=== PATIENT | female | born 1970 | race Caucasian/White ===

== ENCOUNTER 2019-09-27 12:51 | Observation (INO) | payer OTHER ==
[2019-09-27] MEDS ORDERED: Aspirin 81 MG Tab.Chew PO ONE (12:59)
[2019-09-27] MEDS ORDERED: Sodium Chloride 0.9% 1,000 ML IV ONE (12:59)
--- NOTE | 2019-09-27 13:05 | EDM.PDOC ---
ED HPI GENERAL MEDICAL PROBLEM - General Stated Complaint: CHEST PAIN Time Seen by Provider: 09/27/19 12:54 Source of Information: Reports: Patient History Limitations: Reports: No Limitations - History of Present Illness INITIAL COMMENTS - FREE TEXT/NARRATIVE: HISTORY AND PHYSICAL: History of present illness: Patient is a 49-year-old female who presents to the emergency room with complaints of hypertension headache, left neck/chest and upper back pain. She states yesterday she noticed some change in her vision which she describes as a "crescent kinney" that was affecting the outer edges of her vision. When she has had this previously she attributed it to high blood pressure. She has been told she does occasionally run high but is never been placed on medications for this. Later that evening she developed pain in her left neck and upper back. She "dealt with it" until this morning when she arrived at work and started having some pressure in her left anterior chest into her neck. She went to the employee health nurse who evaluated her and stated her blood pressure was 180- 160s over 100's. She felt "drunk", had some associated nausea and feeling light headed. Patient denies any fever, chills, shortness of breath or cough. Denies any abdominal pain, vomiting, diarrhea, constipation or dysuria. Has not noted any blood in urine or stool. Patient has been eating and drinking appropriately. She has history of iron deficiency anemia and fibromyalgia. No personal history of heart disease. Never been a smoker. No known family history of heart disease. Review of systems: As per history of present illness and below otherwise all systems reviewed and negative. Past medical history: As per history of present illness and as reviewed below otherwise noncontributory. Surgical history: As per history of present illness and as reviewed below otherwise noncontributory. Social history: See social history for further information Family history: As per history of present illness and as reviewed below otherwise noncontributory. Physical exam: General: Well-developed and well-nourished 49-year-old female. Alert and oriented. Nontoxic-appearing and in no acute distress. HEENT: Atraumatic, normocephalic, pupils equal and reactive bilaterally, negative for conjunctival pallor or scleral icterus, mucous membranes moist, TMs normal bilaterally, throat clear, neck supple, nontender, trachea midline. No drooling or trismus noted. No meningeal signs. No hot potato voice noted. Lungs: Clear to auscultation, breath sounds equal bilaterally, chest nontender. Heart: S1S2, regular rate and rhythm without overt murmur Abdomen: Soft, nondistended, nontender. Negative for masses. Negative for costovertebral tenderness. Skin: Intact, warm, dry. No lesions or rashes noted. Extremities: Atraumatic, moves all extremities per self without difficulty or deficits, negative for cords or calf pain. Neurovascular unremarkable. Neuro: Awake, alert, oriented. Cranial nerves II through XII unremarkable. Cerebellum unremarkable. Motor and sensory unremarkable throughout. Exam nonfocal. Notes: 09/06/2019: Patient reports she had numerous labs done with her PCP. This included CBC, CMP, CRP, ESR, INR, Cholesterol Panel, Copper, Zinc, GIGI, Lyme, and Rheumatoid Factor. EKG shows Sinus Rhythm with rate of 85; reviewed by myself and Dr Cotto - who is involved in patient care. Lab work is unremarkable at this time. She states he chest/neck "pressure is practically gone" but she feels generally unwell "like my body is vibrating". We discussed admission, patient states she would feel unsafe going home at this time. Dr Langley was consulted on this case, will get at CT chest. Pending negative results; she will be admitted for observation to Med/Surg with telemetry. Patient is made aware of plan of care and agreeable. Diagnostics: CBC, CMP, Troponin, EKG, CXR, CT chest Therapeutics: IV fluid, ASA, Nitro, Toradol Impression: Uncontrolled hypertension Chest pain, r/o VA Plan: Observation admission to Med/Surg with telemetry Definitive disposition and diagnosis as appropriate pending reevaluation and review of above. Duration: Day(s): Location: Reports: Neck, Chest, Back Quality: Reports: Pressure Severity: Moderate Improves with: Reports: Rest Worsens with: Reports: Movement Associated Symptoms: Reports: Chest Pain, Fever/Chills (Subjective chills without fever), Headaches, Nausea/Vomiting (Nausea without vomiting). Denies: Confusion, Cough, cough w sputum, Diaphoresis, Loss of Appetite, Rash, Seizure, Shortness of Breath, Syncope, Weakness Chest Pain Score (Numeric/FACES): 3 Posterior Headache Pain Score (Numeric/FACES): 6 - Related Data Allergies Allergy/AdvReac Type Severity Reaction Status Date / Time codeine Allergy Vomiting Verified 09/27/19 13:07 hydrocodone Allergy Agitation Verified 09/27/19 13:07 Sulfa (Sulfonamide Allergy Swelling Verified 09/27/19 13:07 Antibiotics) sodium ferric gluconate Allergy Other Uncoded 09/27/19 13:07 Complex Home Meds: Home Meds Omeprazole 1 tab PO DAILY 03/31/15 [History] Ranitidine HCl [Acid Provider Relations Representative] 2 tab PO BEDTIME 03/31/15 [History] Amitriptyline HCl 1 tab PO BEDTIME 07/03/15 [History] carBAMazepine [Carbatrol] 100 mg PO ASDIRECTED 07/03/15 [History] Meloxicam 15 mg PO DAILY 09/27/19 [History] Past Medical History HEENT History: Reports: Other (See Below) Other HEENT History: wears glasses Cardiovascular History: Reports: High Cholesterol Respiratory History: Reports: None Gastrointestinal History: Reports: Hiatal Hernia Genitourinary History: Reports: None Other Genitourinary History: 4TH EPISODE IN 4 MONTHS WITH SIMILAR SYPTOMS [employer] History: Reports: Musculoskeletal History: Reports: Fibromyalgia, Other (See Below) Other Musculoskeletal History: TRIGEMINAL NEURALGIA Neurological History: Reports: None Other Neuro History: hx of Trigeminal Neuralgia post root canals Psychiatric History: Reports: Depression Endocrine/Metabolic History: Reports: Obesity/BMI 30+ Hematologic History: Reports: Iron Deficiency Immunologic History: Reports: None Other Immunologic History: hx of MRSA Oncologic (Cancer) History: Reports: None Dermatologic History: Reports: None Other Dermatologic History: Hx of MRSA from ear infection - Infectious Disease History Infectious Disease History: Reports: MRSA Other Infectious Disease History: 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 ED EXAM, GENERAL - Physical Exam Exam: See Below (See dictation) Course - Vital Signs Last Recorded V/S: Last Vital Signs Temp 97.7 F 09/27/19 12:55 Pulse 80 09/27/19 13:53 Resp 17 09/27/19 13:53 BP 142/84 H 09/27/19 13:53 Pulse Ox 98 09/27/19 13:53 - Orders/Labs/Meds Orders: Active Orders 24 hr Category Date Time Status Admission Status [Patient Status] [ADT] Stat ADT 09/27/19 14:36 Active Cardiac Monitoring [RC] . DIRECTED Care 09/27/19 13:25 Active Cardiac Monitoring [RC] . DIRECTED Care 09/27/19 14:36 Active EKG Documentation Completion [RC] STAT Care 09/27/19 12:59 Active Labs: Laboratory Tests 09/27/19 09/27/19 09/27/19 Range/Units 12:50 12:55 12:55 WBC 6.55 (4.0-11.0) K/uL RBC 4.95 (4.30-5.90) M/uL Hgb 13.4 (12.0-16.0) g/dL Hct 42.8 (36.0-46.0) % MCV 86.5 (80.0-98.0) fL MCH 27.1 (27.0-32.0) pg MCHC 31.3 (31.0-37.0) g/dL RDW Std Deviation 41.5 (28.0-62.0) fl RDW Coeff of Cindy 13 (11.0-15.0) % Plt Count 303 (150-400) K/uL MPV 8.40 (7.40-12.00) fL Neut % (Auto) 58.9 (48.0-80.0) % Lymph % (Auto) 32.2 (16.0-40.0) % [place] % (Auto) 7.2 (0.0-15.0) % Eos % (Auto) 1.1 (0.0-7.0) % Baso % (Auto) 0.6 (0.0-1.5) % Neut # (Auto) 3.9 (1.4-5.7) K/uL Lymph # (Auto) 2.1 (0.6-2.4) K/uL [place] # (Auto) 0.5 (0.0-0.8) K/uL Eos # (Auto) 0.1 (0.0-0.7) K/uL Baso # (Auto) 0.0 (0.0-0.1) K/uL Nucleated RBC % 0.0 /100WBC Nucleated RBCs # 0 K/uL Sodium 137 (136-145) mmol/L Potassium 3.8 (3.5-5.1) mmol/L Chloride 102 (98-107) mmol/L Carbon Dioxide 27.7 (21.0-32.0) mmol/L BUN 11 (7.0-18.0) mg/dL Creatinine 0.9 (0.6-1.0) mg/dL Est Cr Clr Drug Dosing 60.46 mL/min Estimated GFR (MDRD) > 60.0 ml/min Glucose 81 (74-106) mg/dL Calcium 8.9 (8.5-10.1) mg/dL Total Bilirubin 0.2 (0.2-1.0) mg/dL AST 20 (15-37) IU/L ALT 22 (14-63) IU/L Alkaline Phosphatase 81 (46-116) U/L Troponin I < 0.050 (0.000-0.056) ng/mL Total Protein 7.3 (6.4-8.2) g/dL Albumin 3.6 (3.4-5.0) g/dL Globulin 3.7 (2.6-4.0) g/dL Albumin/Globulin Ratio 1.0 (0.9-1.6) Urine Color YELLOW Urine Appearance SLT CLOUDY Urine pH 6.0 (5.0-8.0) Ur Specific [place] 1.015 (1.001-1.035) Urine Protein NEGATIVE (NEGATIVE) mg/dL Urine Glucose (UA) NEGATIVE (NEGATIVE) mg/dL Urine Ketones NEGATIVE (NEGATIVE) mg/dL Urine Occult Blood NEGATIVE (NEGATIVE) Urine Nitrite NEGATIVE (NEGATIVE) Urine Bilirubin NEGATIVE (NEGATIVE) Urine Urobilinogen 0.2 (<2.0) EU/dL Ur Leukocyte Esterase NEGATIVE (NEGATIVE) Meds: Medications Discontinued Medications Generic Name Dose Route Start Last Admin Trade Name Freq PRN Reason Stop Dose Admin Aspirin 324 mg 09/27/19 12:59 09/27/19 13:18 Aspirin PO 09/27/19 13:00 324 mg ONETIME ONE Administration Sodium Chloride 1,000 mls @ 999 mls/hr 09/27/19 12:59 09/27/19 13:19 Normal Saline IV 09/27/19 13:59 999 mls/hr STAT ONE Administration Ketorolac Tromethamine 30 mg 09/27/19 13:44 09/27/19 13:52 Toradol IVPUSH 09/27/19 13:45 30 mg ONETIME ONE Administration Nitroglycerin 0.4 mg 09/27/19 12:59 09/27/19 13:30 Nitrostat SL 0.4 mg Q5M PRN Administration Chest Pain Departure - Departure Time of Disposition: 14:44 Disposition: Refer to Observation Clinical Impression: Uncontrolled hypertension, Chest pain, rule out acute myocardial infarction - Discharge Information Referrals: Sarah Orozco NP [Primary Care Provider] - Sepsis Event Note - Focused Exam Vital Signs: Vital Signs Temp Pulse Resp BP BP Pulse Ox 09/27/19 13:53 80 17 142/84 H 98 09/27/19 13:35 89 16 134/74 96 09/27/19 13:32 91 16 132/80 97 09/27/19 13:30 130/83 09/27/19 13:27 93 15 136/83 97 09/27/19 13:25 141/90 H 09/27/19 13:24 92 14 131/101 H 97 09/27/19 13:20 138/116 H 09/27/19 12:55 97.7 F 92 18 173/92 H 99 Date Exam was Performed: 09/27/19 Time Exam was Performed: 14:42 - My Orders Last 24 Hours: My Active Orders 09/27/19 12:59 EKG Documentation Completion [RC] STAT 09/27/19 13:25 Cardiac Monitoring [RC] . DIRECTED 09/27/19 14:36 Admission Status [Patient Status] [ADT] Stat Cardiac Monitoring [RC] . DIRECTED - Assessment/Plan Last 24 Hours: My Active Orders 09/27/19 12:59 EKG Documentation Completion [RC] STAT 09/27/19 13:25 Cardiac Monitoring [RC] . DIRECTED 09/27/19 14:36 Admission Status [Patient Status] [ADT] Stat Cardiac Monitoring [RC] . DIRECTED
[2019-09-27] MEDS: Nitroglycerin 0.4 MG Tab.SL SL PRN ×3 (13:20→13:30)
--- NOTE | 2019-09-27 13:42 | CR ---
Chest: Portable view of the chest was obtained. Comparison: No previous chest imaging is available. Heart size and mediastinum are normal. Lungs are clear with no acute parenchymal change. Bony structures are grossly intact. Impression: 1. Nothing acute is seen on portable chest x-ray. Diagnostic code #1 This report was dictated in MDT
[2019-09-27 13:44] LABS: BLOOD UREA NITROGEN,BUN 11 mg/dL (7.0-18.0); CARBON DIOXIDE,CO2 27.7 mmol/L (21.0-32.0); CHLORIDE,CL 102 mmol/L (98-107); GLUCOSE RANDOM 81 mg/dL (74-106); POTASSIUM,K 3.8 mmol/L (3.5-5.1); SODIUM,NA 137 mmol/L (136-145)
[2019-09-27] MEDS ORDERED: Ketorolac 30 MG/ML SDV IVPUSH ONE (13:44)
--- NOTE | 2019-09-27 14:40 | CT ---
CT chest Technique: Multiple axial sections through the chest were obtained. Intravenous contrast was utilized. Study has been performed as a pulmonary angiogram protocol. Findings: Aorta shows no aneurysm. No dissection is seen. Pulmonary arteries are well opacified. No filling defects are seen to indicate pulmonary embolism. Small hiatal hernia is noted. No pericardial thickening is seen. Lungs are clear with no acute parenchymal change. Bone window settings were reviewed which shows no acute osseous finding. Impression: 1. No thoracic aneurysm or dissection. 2. No pulmonary embolism. 3. Nothing acute is appreciated on CT study of the chest. Diagnostic code #2 This report was dictated in MDT
[2019-09-27] MEDS ORDERED: Ondansetron 4 MG/2 ML SDV IVPUSH PRN (15:38)
[2019-09-27] MEDS ORDERED: Acetaminophen 325 MG Tab PO PRN (15:38)
--- NOTE | 2019-09-27 15:41 | PCM.HP.2 ---
H&P History of Present Illness - General Date of Service: 09/27/19 Admit Problem/Dx: Admission Diagnosis/Problem Admission Diagnosis/Problem Chest pain, rule out acute myocardial infarction Source of Information: Patient History Limitations: Reports: No Limitations - History of Present Illness Initial Comments - Free Text/Narative: This 49 year old female with pmh of HTN not currently treated, obesity, fibromyalgia, trigeminal neuralgia presented to the ED today with complaints of chest heaviness, some jaw pain, headache and elevated blood pressure. She states yesterday she noticed some change in her vision which she describes as a "crescent kinney" that was affecting the outer edges of her vision. She reports this has been there in the past and she attributed it to high blood pressure. SHe states recently at some clinic appointments her blood pressure has been quite elevated, but no medications have been started. Last night she developed pain in her left neck and upper back her massage her neck and she went to bed.This morning when she arrived at work and started having some pressure in her left anterior chest into her neck. She went to the employee health nurse who evaluated her and stated her blood pressure was 180-160s over 100's. She felt off and "just not right". Patient denies any fever, chills, shortness of breath or cough. Denies any abdominal pain, vomiting, diarrhea, constipation or dysuria. Has not noted any blood in urine or stool. Patient has been eating and drinking appropriately. No focal neurological deficits noted. She denies tobacco use, rare alcohol use and no recreational drug use. No significant CAD in her family. In the ED labwork WNL. EKG SR with no ST elevation or ischemic changes. CXR negative. She was given 3 nitro with improvement in symptoms, BP improved to 130 SBP. As nitro wore off, BP started creeping up to 160/90s. ED recommended admission for observation PCP, Dr Rodriguez. Recent labwork included elevated cholesterol for which she was started on Crestor for. Chest Pain Score (Numeric/FACES): 3 Posterior Headache Pain Score (Numeric/FACES): 6 - Related Data Allergies/Adverse Reactions: Allergies Allergy/AdvReac Type Severity Reaction Status Date / Time codeine Allergy Vomiting Verified 09/27/19 16:44 hydrocodone Allergy Agitation Verified 09/27/19 16:44 Sulfa (Sulfonamide Allergy Swelling Verified 09/27/19 16:44 Antibiotics) sodium ferric gluconate Allergy Other Uncoded 09/27/19 16:44 Complex Home Medications: Home Meds Ranitidine HCl [Acid Snath Handle Assembler] 150 mg PO BEDTIME 03/31/15 [History] Amitriptyline HCl 100 mg PO BEDTIME 07/03/15 [History] Meloxicam 15 mg PO DAILY 09/27/19 [History] Omeprazole 40 mg PO ACBREAKFAST 09/27/19 [History] Rosuvastatin [Crestor] 10 mg PO DAILY 09/27/19 [History] carBAMazepine [Carbamazepine ER] 100 mg PO TID PRN 09/27/19 [History] Past Medical History HEENT History: Reports: Other (See Below) Other HEENT History: wears glasses Cardiovascular History: Reports: High Cholesterol Respiratory History: Reports: None Gastrointestinal History: Reports: Hiatal Hernia Genitourinary History: Reports: None Other Genitourinary History: 4TH EPISODE IN 4 MONTHS WITH SIMILAR SYPTOMS [employer]LYST History: Reports: Musculoskeletal History: Reports: Fibromyalgia, Other (See Below) Other Musculoskeletal History: TRIGEMINAL NEURALGIA Neurological History: Reports: None Other Neuro History: hx of Trigeminal Neuralgia post root canals Psychiatric History: Reports: Depression Endocrine/Metabolic History: Reports: Obesity/BMI 30+ Hematologic History: Reports: Iron Deficiency Immunologic History: Reports: None Other Immunologic History: hx of MRSA Oncologic (Cancer) History: Reports: None Dermatologic History: Reports: None Other Dermatologic History: Hx of MRSA from ear infection - Infectious Disease History Infectious Disease History: Reports: MRSA Other Infectious Disease History: 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 Denies: Dyspnea on Exertion, Orthopnea, Edema Gastrointestinal: Reports: No Symptoms. Denies: Abdominal Pain, Black Stool, Bloody Stool Genitourinary: Reports: No Symptoms. Denies: Dysuria, Frequency Musculoskeletal: Reports: Back Pain (upper back shoulder pain) Skin: Reports: No Symptoms Neurological: Reports: No Symptoms Hematologic/Lymphatic: Reports: No Symptoms Immunologic: Reports: No Symptoms Exam - Exam Exam: See Below - Vital Signs Vital Signs: Last Vital Signs Temp 97.7 F 09/27/19 12:55 Pulse 80 09/27/19 14:56 Resp 16 09/27/19 14:56 BP 161/96 H 09/27/19 14:56 Pulse Ox 99 09/27/19 14:56 Weight: 94.3 kg - Exam General: Alert, Oriented, Cooperative Neck: Supple, Trachea Midline Lungs: Clear to Auscultation, Normal Respiratory Effort Cardiovascular: Regular Rate, Regular Rhythm GI/Abdominal Exam: Normal Bowel Sounds, Soft, Non-Tender Extremities: Normal Inspection, Normal Range of Motion, Non-Tender, No Pedal Edema Neuro Extensive - Mental Status: Alert, Oriented x3 Neuro Extensive - Motor, Sensory, Reflexes: CN II-XII Intact Psychiatric: Alert, Normal Affect, Normal Mood - Patient Data Lab Results Last 24 hrs: Laboratory Results - last 24 hr 09/27/19 09/27/19 09/27/19 Range/Units 12:50 12:55 12:55 WBC 6.55 (4.0-11.0) K/uL RBC 4.95 (4.30-5.90) M/uL Hgb 13.4 (12.0-16.0) g/dL Hct 42.8 (36.0-46.0) % MCV 86.5 (80.0-98.0) fL MCH 27.1 (27.0-32.0) pg MCHC 31.3 (31.0-37.0) g/dL RDW Std Deviation 41.5 (28.0-62.0) fl RDW Coeff of Cindy 13 (11.0-15.0) % Plt Count 303 (150-400) K/uL MPV 8.40 (7.40-12.00) fL Neut % (Auto) 58.9 (48.0-80.0) % Lymph % (Auto) 32.2 (16.0-40.0) % Crisp % (Auto) 7.2 (0.0-15.0) % Eos % (Auto) 1.1 (0.0-7.0) % Baso % (Auto) 0.6 (0.0-1.5) % Neut # (Auto) 3.9 (1.4-5.7) K/uL Lymph # (Auto) 2.1 (0.6-2.4) K/uL Crisp # (Auto) 0.5 (0.0-0.8) K/uL Eos # (Auto) 0.1 (0.0-0.7) K/uL Baso # (Auto) 0.0 (0.0-0.1) K/uL Nucleated RBC % 0.0 /100WBC Nucleated RBCs # 0 K/uL Sodium 137 (136-145) mmol/L Potassium 3.8 (3.5-5.1) mmol/L Chloride 102 (98-107) mmol/L Carbon Dioxide 27.7 (21.0-32.0) mmol/L BUN 11 (7.0-18.0) mg/dL Creatinine 0.9 (0.6-1.0) mg/dL Est Cr Clr Drug Dosing 60.46 mL/min Estimated GFR (MDRD) > 60.0 ml/min Glucose 81 (74-106) mg/dL Calcium 8.9 (8.5-10.1) mg/dL Total Bilirubin 0.2 (0.2-1.0) mg/dL AST 20 (15-37) IU/L ALT 22 (14-63) IU/L Alkaline Phosphatase 81 (46-116) U/L Troponin I < 0.050 (0.000-0.056) ng/mL Total Protein 7.3 (6.4-8.2) g/dL Albumin 3.6 (3.4-5.0) g/dL Globulin 3.7 (2.6-4.0) g/dL Albumin/Globulin Ratio 1.0 (0.9-1.6) Urine Color YELLOW Urine Appearance SLT CLOUDY Urine pH 6.0 (5.0-8.0) Ur Specific [place] 1.015 (1.001-1.035) Urine Protein NEGATIVE (NEGATIVE) mg/dL Urine Glucose (UA) NEGATIVE (NEGATIVE) mg/dL Urine Ketones NEGATIVE (NEGATIVE) mg/dL Urine Occult Blood NEGATIVE (NEGATIVE) Urine Nitrite NEGATIVE (NEGATIVE) Urine Bilirubin NEGATIVE (NEGATIVE) Urine Urobilinogen 0.2 (<2.0) EU/dL Ur Leukocyte Esterase NEGATIVE (NEGATIVE) Result Diagrams: 09/27/19 12:55 09/27/19 12:55 EKG INTERPRETATION EKG Date: 09/27/19 Rhythm: NSR P-Wave: Present QRS: Normal ST-T: Normal QT: Normal Sepsis Event Note - Evaluation Sepsis Screening Result: No Definite Risk - Focused Exam Vital Signs: Vital Signs Temp Pulse Resp BP BP Pulse Ox 09/27/19 14:56 80 16 161/96 H 99 09/27/19 13:53 80 17 142/84 H 98 09/27/19 13:35 89 16 134/74 96 09/27/19 13:32 91 16 132/80 97 09/27/19 13:30 130/83 09/27/19 13:27 93 15 136/83 97 09/27/19 13:25 141/90 H 09/27/19 13:24 92 14 131/101 H 97 09/27/19 13:20 138/116 H 09/27/19 12:55 97.7 F 92 18 173/92 H 99 Date Exam was Performed: 09/27/19 Time Exam was Performed: 19:32 - Problem List (1) Chest pain, rule out acute myocardial infarction SNOMED Code(s): 71851449 ICD Code: R07.9 - CHEST PAIN, UNSPECIFIED Status: Acute Current Visit: Yes (2) Uncontrolled hypertension SNOMED Code(s): 28239302, 88862364 ICD Code: I10 - ESSENTIAL (PRIMARY) HYPERTENSION Status: Acute Current Visit: Yes (3) Fibromyalgia SNOMED Code(s): 144201244 ICD Code: M79.7 - FIBROMYALGIA Status: Chronic Priority: Low Current Visit: No (4) GERD (gastroesophageal reflux disease) SNOMED Code(s): 044123314 ICD Code: K21.9 - GASTRO-ESOPHAGEAL REFLUX DISEASE WITHOUT ESOPHAGITIS Status: Chronic Priority: Medium Current Visit: No Qualifiers: Esophagitis presence: esophagitis presence not specified Qualified Code(s) : K21.9 - Gastro-esophageal reflux disease without esophagitis (5) Trigeminal neuralgia SNOMED Code(s): 89613999 ICD Code: G50.0 - TRIGEMINAL NEURALGIA Status: Chronic Priority: Low Current Visit: No Problem List Initiated/Reviewed/Updated: Yes Orders Last 24hrs: Active Orders 24 hr Category Date Time Status Admission Status [Patient Status] [ADT] Stat ADT 09/27/19 14:36 Active Antiembolic Devices [RC] PER UNIT ROUTINE Care 09/27/19 15:39 Ordered Cardiac Monitoring [RC] . DIRECTED Care 09/27/19 13:25 Active Cardiac Monitoring [RC] . DIRECTED Care 09/27/19 14:36 Active EKG Documentation Completion [RC] STAT Care 09/27/19 12:59 Active Intake and Output [RC] QSHIFT Care 09/27/19 15:38 Ordered May Shower [RC] ASDIRECTED Care 09/27/19 15:38 Ordered Oxygen Therapy [RC] PRN Care 09/27/19 15:38 Ordered Up to Chair [RC] ASDIRECTED Care 09/27/19 15:38 Ordered VTE/DVT Education [RC] PER UNIT ROUTINE Care 09/27/19 15:38 Ordered Vital Signs [RC] Q4H Care 09/27/19 15:38 Ordered Regular Diet [DIET] Diet 09/27/19 Lunch Ordered GLYCOSYLATED HEMOGLOBIN,HGBA1C [CHEM] Routine Lab 09/27/19 15:39 Ordered TROPONIN I [CHEM] Q6H Lab 09/27/19 19:00 Ordered TROPONIN I [CHEM] Q6H Lab 09/28/19 01:00 Ordered TSH [CHEM] Routine Lab 09/27/19 15:39 Ordered Acetaminophen [Tylenol] Med 09/27/19 15:38 Ordered 650 mg PO Q4H PRN Amitriptyline HCl [Amitriptyline HCl] Med 09/27/19 21:00 Ordered 1 tab PO BEDTIME Gabapentin [Neurontin] Med 09/27/19 15:40 Ordered 300 mg PO TID PRN Omeprazole [Omeprazole] Med 09/28/19 09:00 Ordered 1 tab PO DAILY Ondansetron [Zofran] Med 09/27/19 15:38 Ordered 4 mg IVPUSH Q4H PRN Ranitidine HCl [Acid Snath Handle Assembler] Med 09/27/19 21:00 Ordered 2 tab PO BEDTIME Sequential Compression Device [OM.PC] Per Unit Routine Oth 09/27/19 15:38 Ordered Resuscitation Status Routine Resus Stat 09/27/19 15:38 Ordered Medication Orders Acetaminophen (Tylenol) 650 mg PO Q4H PRN PRN Reason: Pain (Mild 1-3)/fever Gabapentin (Neurontin) 300 mg PO TID PRN PRN Reason: Pain Non-Formulary Medication (Amitriptyline Hcl [Amitriptyline Hcl]) 1 tab PO BEDTIME ADONAY Non-Formulary Medication (Omeprazole [Omeprazole]) 1 tab PO DAILY ADONAY Non-Formulary Medication (Ranitidine Hcl [Acid Snath Handle Assembler]) 2 tab PO BEDTIME ADONAY Ondansetron HCl (Zofran) 4 mg IVPUSH Q4H PRN PRN Reason: Nausea Assessment/Plan Comment:: This 49 year old female admitted with chest pain rule out ACS and hypertension 1. Chest pain r/o ACS - Trend troponins q6 x 2 - Monitor on telemetry - A1c 5.3 - TSH 2.08 - Cholesterol elevated on work up end of August started on Crestor - Asa 81 mg - Recommend stress test as outpatient 2. HTN - Elevated after Nitro, with some return of symptoms - Start Lisinopril 10 mg tonight and monitor - Reports diastolic is always high, denies history of KRISH - Recommend sleep study - ECHO 3. Fibromyalgia/GERD - Continue home medications VTE prophylaxis: SCDs Dispo: 1 day - Mortality Measure Prognosis:: Good
[2019-09-27 16:03] LABS: HEMOGLOBIN A1C 5.3 % (4.5-6.2)
[2019-09-27] MEDS: Lisinopril 10 MG Tab PO SCH (16:17)
[2019-09-27] MEDS ORDERED: Iopamidol 755 MG/ML 50 ML Bottle IV ONE (18:20)
[2019-09-27] MEDS ORDERED: Amitriptyline 25 MG Tab PO SCH (21:00)
[2019-09-27] MEDS: carBAMazepine 100 MG Cap.ER PO SCH ×2 (21:00→22:41)
[2019-09-27] MEDS ORDERED: Rosuvastatin 10 MG Tab PO SCH (21:00)
[2019-09-27] MEDS ORDERED: Famotidine 20 MG Tab PO SCH (21:00)
[2019-09-27] MEDS: Gabapentin 300 MG Cap PO SCH (22:36)
[2019-09-28] MEDS ORDERED: Omeprazole 20 MG Cap.CR PO SCH ×2 (07:30)
[2019-09-28] MEDS ORDERED: Aspirin 81 MG Tab.Chew PO SCH (09:00)
--- NOTE | 2019-09-28 09:07 | PCM.DCSUM1 ---
Discharge Summary - Hospital Course Brief History: This 49 year old female with pmh of HTN not currently treated, obesity, fibromyalgia, trigeminal neuralgia presented to the ED today with complaints of chest heaviness, some jaw pain, headache and elevated blood pressure. She states yesterday she noticed some change in her vision which she describes as a "crescent kinney" that was affecting the outer edges of her vision. She reports this has been there in the past and she attributed it to high blood pressure. SHe states recently at some clinic appointments her blood pressure has been quite elevated, but no medications have been started. Last night she developed pain in her left neck and upper back her massage her neck and she went to bed.This morning when she arrived at work and started having some pressure in her left anterior chest into her neck. She went to the employee health nurse who evaluated her and stated her blood pressure was 180- 160s over 100's. She felt off and "just not right". Patient denies any fever, chills, shortness of breath or cough. Denies any abdominal pain, vomiting, diarrhea, constipation or dysuria. Has not noted any blood in urine or stool. Patient has been eating and drinking appropriately. No focal neurological deficits noted. She denies tobacco use, rare alcohol use and no recreational drug use. No significant CAD in her family. In the ED labwork WNL. EKG SR with no ST elevation or ischemic changes. CXR negative. She was given 3 nitro with improvement in symptoms, BP improved to 130 SBP. As nitro wore off, BP started creeping up to 160/90s. ED recommended admission for observation. PCP, Sarah Orozco NP Diagnosis: Stroke: No - Discharge Data Discharge Date: 09/28/19 Discharge Disposition: Home, Self-Care 01 Condition: Stable - Referral to Home Health Primary Care Physician: Manuela Orozco NP - Discharge Diagnosis/Problem(s) (1) Chest pain, rule out acute myocardial infarction SNOMED Code(s): 43020783 ICD Code: R07.9 - CHEST PAIN, UNSPECIFIED Status: Acute Current Visit: Yes (2) Uncontrolled hypertension SNOMED Code(s): 86465243, 60308030 ICD Code: I10 - ESSENTIAL (PRIMARY) HYPERTENSION Status: Acute Current Visit: Yes (3) Fibromyalgia SNOMED Code(s): 371446247 ICD Code: M79.7 - FIBROMYALGIA Status: Chronic Priority: Low Current Visit: No (4) GERD (gastroesophageal reflux disease) SNOMED Code(s): 852283927 ICD Code: K21.9 - GASTRO-ESOPHAGEAL REFLUX DISEASE WITHOUT ESOPHAGITIS Status: Chronic Priority: Medium Current Visit: No Qualifiers: Esophagitis presence: esophagitis presence not specified Qualified Code(s) : K21.9 - Gastro-esophageal reflux disease without esophagitis (5) Trigeminal neuralgia SNOMED Code(s): 11195461 ICD Code: G50.0 - TRIGEMINAL NEURALGIA Status: Chronic Priority: Low Current Visit: No - Patient Summary/Data Hospital Course: Admitting Diagnoses: Chest pain HTN Neck pain Discharge Diagnoses: Chest pain - resolved HTN Flare of fibromyalgia/ trigeminal neuralgia Other pmh: Obesity Dyslipidemia Jennifer was admitted secondary to chest pain and elvated blood pressures. She was monitored on telemetry and troponins trended, no reoccurrence of chest pain. BP was managed after starting Lisinopril 10 mg daily. Troponins negative, ACS ruled out. She was started on ASA along with recently started Crestor for Dyslipidemia. She will be discharged home today, pain likely related to flare of fibromyalgia and trigeminal neuralgia. She was counseled and taking her medications appropriately to keep flares at bay. SHe verbalized understanding. ECHO obtained and is pending on discharge. NM exercise stress test ordered as well as sleep study. She is to follow up with PCP in 1 week. Return to ED or clinic if concerns should arise. - Patient Instructions Diet: Heart Healthy Diet Activity: No Strenuous Activities Showering/Bathing: May Shower Notify Provider of: Fever, Increased Pain, Swelling and Redness, Drainage, Nausea and/or Vomiting - Discharge Plan *PRESCRIPTION DRUG MONITORING PROGRAM REVIEWED*: Not Applicable *COPY OF PRESCRIPTION DRUG MONITORING REPORT IN PATIENT JACQUE: Not Applicable Prescriptions/Med Rec: lisinopriL [Prinivil] 10 mg PO DAILY #30 tablet Home Medications: Home Meds Ranitidine HCl [Acid Director Service] 150 mg PO BEDTIME 03/31/15 [History] Amitriptyline HCl 100 mg PO BEDTIME 07/03/15 [History] Meloxicam 15 mg PO DAILY 09/27/19 [History] Omeprazole 40 mg PO ACBREAKFAST 09/27/19 [History] Rosuvastatin [Crestor] 10 mg PO DAILY 09/27/19 [History] carBAMazepine [Carbamazepine ER] 100 mg PO TID PRN 09/27/19 [History] Aspirin 81 mg PO DAILY tab.chew 09/28/19 [Rx] lisinopriL [Prinivil] 10 mg PO DAILY #30 tablet 09/28/19 [Rx] Oxygen Therapy Mode: Room Air Patient Handouts: Nonspecific Chest Pain, Adult, [id number], Lisinopril tablets Referrals: Sarah Orozco NP [Primary Care Provider] - 10/05/19 11:30 am - Discharge Summary/Plan Comment DC Time >30 min.: No - Patient Data Vitals - Most Recent: Last Vital Signs Temp 96.8 F L 09/28/19 04:00 Pulse 71 09/28/19 04:00 Resp 16 09/28/19 04:00 BP 123/73 09/28/19 04:00 Pulse Ox 97 09/28/19 04:00 Weight - Most Recent: 94.3 kg I&O - Last 24 hours: Intake & Output 09/27/19 09/28/19 09/28/19 22:59 06:59 14:59 Intake Total 500 Output Total 800 Balance -300 Lab Results - Last 24 hrs: Laboratory Results - last 24 hr 09/27/19 09/27/19 09/27/19 Range/Units 12:50 12:55 12:55 WBC 6.55 (4.0-11.0) K/uL RBC 4.95 (4.30-5.90) M/uL Hgb 13.4 (12.0-16.0) g/dL Hct 42.8 (36.0-46.0) % MCV 86.5 (80.0-98.0) fL MCH 27.1 (27.0-32.0) pg MCHC 31.3 (31.0-37.0) g/dL RDW Std Deviation 41.5 (28.0-62.0) fl RDW Coeff of Cindy 13 (11.0-15.0) % Plt Count 303 (150-400) K/uL MPV 8.40 (7.40-12.00) fL Neut % (Auto) 58.9 (48.0-80.0) % Lymph % (Auto) 32.2 (16.0-40.0) % [place] % (Auto) 7.2 (0.0-15.0) % Eos % (Auto) 1.1 (0.0-7.0) % Baso % (Auto) 0.6 (0.0-1.5) % Neut # (Auto) 3.9 (1.4-5.7) K/uL Lymph # (Auto) 2.1 (0.6-2.4) K/uL [place] # (Auto) 0.5 (0.0-0.8) K/uL Eos # (Auto) 0.1 (0.0-0.7) K/uL Baso # (Auto) 0.0 (0.0-0.1) K/uL Nucleated RBC % 0.0 /100WBC Nucleated RBCs # 0 K/uL Sodium 137 (136-145) mmol/L Potassium 3.8 (3.5-5.1) mmol/L Chloride 102 (98-107) mmol/L Carbon Dioxide 27.7 (21.0-32.0) mmol/L BUN 11 (7.0-18.0) mg/dL Creatinine 0.9 (0.6-1.0) mg/dL Est Cr Clr Drug Dosing 60.46 mL/min Estimated GFR (MDRD) > 60.0 ml/min Glucose 81 (74-106) mg/dL Hemoglobin A1c (4.5-6.2) % Calcium 8.9 (8.5-10.1) mg/dL Total Bilirubin 0.2 (0.2-1.0) mg/dL AST 20 (15-37) IU/L ALT 22 (14-63) IU/L Alkaline Phosphatase 81 (46-116) U/L Troponin I < 0.050 (0.000-0.056) ng/mL Total Protein 7.3 (6.4-8.2) g/dL Albumin 3.6 (3.4-5.0) g/dL Globulin 3.7 (2.6-4.0) g/dL Albumin/Globulin Ratio 1.0 (0.9-1.6) TSH 3rd Generation (0.36-3.74) uIU/mL Urine Color YELLOW Urine Appearance SLT CLOUDY Urine pH 6.0 (5.0-8.0) Ur Specific [place] 1.015 (1.001-1.035) Urine Protein NEGATIVE (NEGATIVE) mg/dL Urine Glucose (UA) NEGATIVE (NEGATIVE) mg/dL Urine Ketones NEGATIVE (NEGATIVE) mg/dL Urine Occult Blood NEGATIVE (NEGATIVE) Urine Nitrite NEGATIVE (NEGATIVE) Urine Bilirubin NEGATIVE (NEGATIVE) Urine Urobilinogen 0.2 (<2.0) EU/dL Ur Leukocyte Esterase NEGATIVE (NEGATIVE) 09/27/19 09/27/19 09/27/19 Range/Units 12:55 12:55 18:55 WBC (4.0-11.0) K/uL RBC (4.30-5.90) M/uL Hgb (12.0-16.0) g/dL Hct (36.0-46.0) % MCV (80.0-98.0) fL MCH (27.0-32.0) pg MCHC (31.0-37.0) g/dL RDW Std Deviation (28.0-62.0) fl RDW Coeff of Cindy (11.0-15.0) % Plt Count (150-400) K/uL MPV (7.40-12.00) fL Neut % (Auto) (48.0-80.0) % Lymph % (Auto) (16.0-40.0) % [place] % (Auto) (0.0-15.0) % Eos % (Auto) (0.0-7.0) % Baso % (Auto) (0.0-1.5) % Neut # (Auto) (1.4-5.7) K/uL Lymph # (Auto) (0.6-2.4) K/uL [place] # (Auto) (0.0-0.8) K/uL Eos # (Auto) (0.0-0.7) K/uL Baso # (Auto) (0.0-0.1) K/uL Nucleated RBC % /100WBC Nucleated RBCs # K/uL Sodium (136-145) mmol/L Potassium (3.5-5.1) mmol/L Chloride (98-107) mmol/L Carbon Dioxide (21.0-32.0) mmol/L BUN (7.0-18.0) mg/dL Creatinine (0.6-1.0) mg/dL Est Cr Clr Drug Dosing mL/min Estimated GFR (MDRD) ml/min Glucose (74-106) mg/dL Hemoglobin A1c 5.3 (4.5-6.2) % Calcium (8.5-10.1) mg/dL Total Bilirubin (0.2-1.0) mg/dL AST (15-37) IU/L ALT (14-63) IU/L Alkaline Phosphatase (46-116) U/L Troponin I < 0.050 (0.000-0.056) ng/mL Total Protein (6.4-8.2) g/dL Albumin (3.4-5.0) g/dL Globulin (2.6-4.0) g/dL Albumin/Globulin Ratio (0.9-1.6) TSH 3rd Generation 2.08 (0.36-3.74) uIU/mL Urine Color Urine Appearance Urine pH (5.0-8.0) Ur Specific [place] (1.001-1.035) Urine Protein (NEGATIVE) mg/dL Urine Glucose (UA) (NEGATIVE) mg/dL Urine Ketones (NEGATIVE) mg/dL Urine Occult Blood (NEGATIVE) Urine Nitrite (NEGATIVE) Urine Bilirubin (NEGATIVE) Urine Urobilinogen (<2.0) EU/dL Ur Leukocyte Esterase (NEGATIVE) 09/28/19 Range/Units 01:04 WBC (4.0-11.0) K/uL RBC (4.30-5.90) M/uL Hgb (12.0-16.0) g/dL Hct (36.0-46.0) % MCV (80.0-98.0) fL MCH (27.0-32.0) pg MCHC (31.0-37.0) g/dL RDW Std Deviation (28.0-62.0) fl RDW Coeff of Cindy (11.0-15.0) % Plt Count (150-400) K/uL MPV (7.40-12.00) fL Neut % (Auto) (48.0-80.0) % Lymph % (Auto) (16.0-40.0) % [place] % (Auto) (0.0-15.0) % Eos % (Auto) (0.0-7.0) % Baso % (Auto) (0.0-1.5) % Neut # (Auto) (1.4-5.7) K/uL Lymph # (Auto) (0.6-2.4) K/uL [place] # (Auto) (0.0-0.8) K/uL Eos # (Auto) (0.0-0.7) K/uL Baso # (Auto) (0.0-0.1) K/uL Nucleated RBC % /100WBC Nucleated RBCs # K/uL Sodium (136-145) mmol/L Potassium (3.5-5.1) mmol/L Chloride (98-107) mmol/L Carbon Dioxide (21.0-32.0) mmol/L BUN (7.0-18.0) mg/dL Creatinine (0.6-1.0) mg/dL Est Cr Clr Drug Dosing mL/min Estimated GFR (MDRD) ml/min Glucose (74-106) mg/dL Hemoglobin A1c (4.5-6.2) % Calcium (8.5-10.1) mg/dL Total Bilirubin (0.2-1.0) mg/dL AST (15-37) IU/L ALT (14-63) IU/L Alkaline Phosphatase (46-116) U/L Troponin I < 0.050 (0.000-0.056) ng/mL Total Protein (6.4-8.2) g/dL Albumin (3.4-5.0) g/dL Globulin (2.6-4.0) g/dL Albumin/Globulin Ratio (0.9-1.6) TSH 3rd Generation (0.36-3.74) uIU/mL Urine Color Urine Appearance Urine pH (5.0-8.0) Ur Specific [place] (1.001-1.035) Urine Protein (NEGATIVE) mg/dL Urine Glucose (UA) (NEGATIVE) mg/dL Urine Ketones (NEGATIVE) mg/dL Urine Occult Blood (NEGATIVE) Urine Nitrite (NEGATIVE) Urine Bilirubin (NEGATIVE) Urine Urobilinogen (<2.0) EU/dL Ur Leukocyte Esterase (NEGATIVE) Med Orders - Current: Current Medications Acetaminophen (Tylenol) 650 mg PO Q4H PRN PRN Reason: Pain (Mild 1-3)/fever Last Admin: 09/27/19 16:18 Dose: 650 mg Amitriptyline HCl (Elavil) 100 mg PO BEDTIME ADONAY Last Admin: 09/27/19 22:37 Dose: 100 mg Aspirin (Aspirin) 81 mg PO DAILY [facility] Carbamazepine (Tegretol Xr) 100 mg PO BID [facility] Last Admin: 09/27/19 21:00 Dose: 100 mg Famotidine (Pepcid) 20 mg PO BEDTIME [facility] Last Admin: 09/27/19 22:36 Dose: 20 mg Gabapentin (Neurontin) 600 mg PO BID [facility] Last Admin: 09/27/19 22:36 Dose: 600 mg Lisinopril (Prinivil) 10 mg PO DAILY [facility] Last Admin: 09/27/19 16:17 Dose: 10 mg Omeprazole (Omeprazole) 40 mg PO ACBREAKFAST [facility] Last Admin: 09/28/19 07:55 Dose: 40 mg Ondansetron HCl (Zofran) 4 mg IVPUSH Q4H PRN PRN Reason: Nausea Rosuvastatin Calcium (Crestor) 10 mg PO BEDTIME [facility] Last Admin: 09/27/19 22:36 Dose: 10 mg Discontinued Medications Aspirin (Aspirin) 324 mg PO ONETIME ONE Stop: 09/27/19 13:00 Last Admin: 09/27/19 13:18 Dose: 324 mg Sodium Chloride (Normal Saline) 1,000 mls @ 999 mls/hr IV STAT ONE Stop: 09/27/19 13:59 Last Admin: 09/27/19 13:19 Dose: 999 mls/hr Iopamidol (Isovue-370 (76%)) 50 ml IV ONETIME ONE Stop: 09/27/19 18:21 Last Admin: 09/27/19 18:21 Dose: 50 ml Ketorolac Tromethamine (Toradol) 30 mg IVPUSH ONETIME ONE Stop: 09/27/19 13:45 Last Admin: 09/27/19 13:52 Dose: 30 mg Nitroglycerin (Nitrostat) 0.4 mg SL Q5M PRN PRN Reason: Chest Pain Last Admin: 09/27/19 13:30 Dose: 0.4 mg Omeprazole (Omeprazole) 20 mg PO ACBREAKFAST [facility]
[2019-09-28 09:18] VITALS: BP 126/79; PULSE 76
[2019-09-28] MEDS: Gabapentin 300 MG Cap PO SCH (09:18)
[2019-09-28] MEDS: Lisinopril 10 MG Tab PO SCH (09:19)
[2019-09-28] MEDS: carBAMazepine 100 MG Cap.ER PO SCH (09:22)
--- NOTE | 2019-10-04 15:23 | ECHO ---
EXAM DATE: 09/27/19 PATIENT'S AGE: 49 The ECHO report can be seen in this patient's EMR (Electronic Medical Record) in the REPORTS section. The report has also been scanned into PACS. [facility]
== END 2019-09-28 11:15 | disposition home or self-care (01) ==
LOC: MW.ED 12:51 → MW.MS 14:36
PROVIDERS: ADMIT Student in an Organized Health Care Education/Training Program; ATTEND Student in an Organized Health Care Education/Training Program
DX: R07.9 Chest pain, unspecified (principal); I10 Essential (primary) hypertension; M79.7 Fibromyalgia; E78.00 Pure hypercholesterolemia, unspecified; E66.9 Obesity, unspecified; K21.9 Gastro-esophageal reflux disease without esophagitis; E78.5 Hyperlipidemia, unspecified; G50.0 Trigeminal neuralgia; F32.9 Major depressive disorder, single episode, unspecified; Z68.38 Body mass index [BMI] 38.0-38.9, adult; Z88.5 Allergy status to narcotic agent; Z88.2 Allergy status to sulfonamides; Z88.8 Allergy status to other drugs, medicaments and biological substances; Z79.899 Other long term (current) drug therapy; Z79.82 Long term (current) use of aspirin
CPT/HCPCS: 36415; 71045; 71275; 80053; 81003; 83036; 84443; 84484; 85025; 93005; 93306; 96361; 96374; 99285; A9270; G0378; J1885; J7030; Q9967; 99284

== ENCOUNTER 2021-05-26 13:43 | Emergency (ER) | payer OTHER ==
[2021-05-26] MEDS ORDERED: Ketorolac 15 MG/ML SDV IVPUSH ONE (14:19)
[2021-05-26] MEDS ORDERED: diphenhydrAMINE 50 MG/ML SDV IVPUSH ONE (14:26)
[2021-05-26] MEDS ORDERED: Prochlorperazine 10 MG/2 ML SDV IVPUSH ONE (14:26)
[2021-05-26] MEDS ORDERED: Dextrose 5%-Lactated Ringers 1,000 ML IV SCH (14:30)
[2021-05-26] MEDS ORDERED: Ketorolac 30 MG/ML SDV IVPUSH ONE ×2 (14:38→14:45)
[2021-05-26] MEDS ORDERED: Ondansetron 4 MG/2 ML SDV IVPUSH ONE (15:11)
--- NOTE | 2021-05-26 17:20 | EDM.PDOC ---
ED HPI GENERAL MEDICAL PROBLEM - General Chief Complaint: Gastrointestinal Problem Stated Complaint: HEADACHE, DIFFICULTY BREATHING Time Seen by Provider: 05/26/21 14:10 - History of Present Illness INITIAL COMMENTS - FREE TEXT/NARRATIVE: CHIEF COMPLAINT(S): Headache HISTORY OF PRESENT ILLNESS: This is a 50-year-old woman with a past medical history of recent diagnosis of COVID-19 who comes to the emergency department with a chief complaint of headache. The patient states that she is having a headache which he describes as her entire head not associated with any blurry vision, double vision or loss of vision. She states that she is also experiencing shortness of breath when lying down, diarrhea which is nonbloody and just weakness because of the COVID-19. She denies any shortness of breath and states that she does have a cough. She denies any chest pain, abdominal pain, nausea or vomiting. She states that she is tried Tylenol ibuprofen without any relief. She denies any exacerbating or relieving factors. REVIEW OF SYSTEMS: Constitutional: Denies fever, chills. Eyes: Denies eye pain Ears, Nose, Mouth, & Throat: Denies earache Cardiovascular: Denies chest pain Respiratory: Positive for cough and shortness of breath Gastrointestinal: Positive for diarrhea. Denies nausea, vomiting, abdominal pain Genitourinary: Denies hematuria Skin:Denies a rash MSK: Denies joint pain Neurological: Positive for headache. Denies blurred vision, numbness, tingling, weakness Psychiatric: Denies depression PAST MEDICAL HISTORY: As per history of present illness and as reviewed below otherwise noncontributory. SURGICAL HISTORY: As per history of present illness and as reviewed below otherwise noncontributory. SOCIAL HISTORY: As per history of present illness and as reviewed below otherwise noncontributory. FAMILY HISTORY: As per history of present illness and as reviewed below otherwise noncontributory. EXAMINATION OF ORGAN SYSTEMS/BODY AREAS: Constitutional: Blood pressure was 164/90, heart rate 80, respiratory 20 with an oxygen saturation 98% on room air. Temperature 36.7 General: Well-appearing woman who is in no acute distress Psychiatric: Appropriate mood and affect. Eyes: No scleral icterus or conjunctival erythema ENMT: Moist mucous membranes. No pharyngeal erythema Cardiovascular: Regular, rate, and rhythm. No gallops, murmurs, or rubs. Bilateral upper extremity pulses symmetric and intact. No peripheral edema. No JVD. Respiratory: Lungs clear to auscultation bilaterally. No wheezes, rales, or rhonchi. Gastrointestinal: Soft, non-tender, non-distended. Normoactive bowel sounds Genitourinary: No suprapubic tenderness Musculoskeletal: Normal range of motion. Skin: No lesions or abrasions. Neurological: Alert, GCS 15 strength and sensation grossly intact in upper a nd lower extremities bilaterally MEDICAL DECISION MAKING AND COURSE IN THE ED WITH INTERPRETATION/REVIEW OF DIAGNOSTIC STUDIES: This is a 50-year-old and with a past medical history of obesity and recent diagnosis of COVID-19 who comes to the emergency department with typical symptoms of COVID-19. At this time the patient is mildly hypertensive but otherwise has normal vital signs. We will treat the patient symptomatically with Toradol, Compazine and Benadryl. We will provide the patient 1 L of D5 LR and reevaluate for symptom improvement. Patient was interested in monoclonal antibodies therefore I did provide her with information and fax the information over for possible infusion. On reevaluation patient reported improvement in her symptoms. At this time her information was faxed over for monoclonal antibodies. She was given strict return precautions. The patient was amenable to discharge and had no further questions DISPOSITION: The patient was discharged home in stable condition. The patient will follow up with primary care physician after isolation. CONDITION: Fair PROCEDURES: None FINAL IMPRESSION(S)/DIAGNOSES: One. Acute COVID-19 infection Ebenezer Marsh M.D. Headache Pain Score (Numeric/FACES): 10 - Related Data Allergies Allergy/AdvReac Type Severity Reaction Status Date / Time codeine Allergy Vomiting Verified 05/26/21 13:48 hydrocodone Allergy Agitation Verified 05/26/21 13:48 Sulfa (Sulfonamide Allergy Swelling Verified 05/26/21 13:48 Antibiotics) sodium ferric gluconate Allergy Other Uncoded 05/26/21 13:48 Complex Home Meds: Home Meds Amitriptyline HCl 100 mg PO BEDTIME 07/03/15 [History] Omeprazole 40 mg PO ACBREAKFAST 09/27/19 [History] carBAMazepine [Carbamazepine ER] 100 mg PO TID PRN 09/27/19 [History] Gabapentin [Neurontin] 600 mg PO TID 05/26/21 [History] Past Medical History HEENT History: Reports: Other (See Below) Other HEENT History: wears glasses Cardiovascular History: Reports: High Cholesterol Respiratory History: Reports: None Gastrointestinal History: Reports: Hiatal Hernia Genitourinary History: Reports: None Other Genitourinary History: 4TH EPISODE IN 4 MONTHS WITH SIMILAR SYPTOMS TONSORIAL 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: Musculoskeletal History: Reports: Fibromyalgia, Other (See Below) Other Musculoskeletal History: TRIGEMINAL NEURALGIA Neurological History: Reports: None Other Neuro History: hx of Trigeminal Neuralgia post root canals Psychiatric History: Reports: Depression Endocrine/Metabolic History: Reports: Obesity/BMI 30+ Hematologic History: Reports: Iron Deficiency Immunologic History: Reports: None Other Immunologic History: hx of MRSA Oncologic (Cancer) History: Reports: None Dermatologic History: Reports: None Other Dermatologic History: Hx of MRSA from ear infection - Infectious Disease History Infectious Disease History: Reports: MRSA Other Infectious Disease History: 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 MRSA- skin (under breast)- colonized-not active - Past Surgical History Head Surgeries/Procedures: Reports: None HEENT Surgical History: Reports: Tonsillectomy Other HEENT Surgeries/Procedures: has trigeminal neuralgia post root canals Cardiovascular Surgical History: Reports: None Respiratory Surgical History: Reports: None GI Surgical History: Reports: Hernia Repair/Other Other GI Surgeries/Procedures: hx of Gastropexy for hiatal hernia, Gastrectomy sleeve hx of umbilical hernia Female Surgical History: Reports: Hysterectomy Endocrine Surgical History: Reports: None Neurological Surgical History: Reports: None Musculoskeletal Surgical History: Reports: None Dermatological Surgical History: Reports: None Social & Family History - Family History Family Medical History: No Pertinent Family History HEENT: Reports: Impaired Vision Cardiac: Reports: Hypertension OBGYN: Reports: Neurological: Reports: Seizure - Tobacco Use Tobacco Use Status *Q: Never Tobacco User - Caffeine Use Caffeine Use: Reports: Coffee, Soda - Recreational Drug Use Recreational Drug Use: No - Living Situation & Occupation Living situation: Reports: 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) ED ROS GENERAL - Review of Systems Review Of Systems: See Below ED EXAM, GENERAL - Physical Exam Exam: See Below Course - Vital Signs Last Recorded V/S: Last Vital Signs Temp 36.7 C 05/26/21 13:51 Pulse 67 05/26/21 17:25 Resp 18 05/26/21 17:25 BP 157/67 H 05/26/21 17:25 Pulse Ox 98 05/26/21 17:25 - Orders/Labs/Meds Meds: Medications Discontinued Medications Generic Name Dose Route Start Last Admin Trade Name Alexandra PRN Reason Stop Dose Admin Diphenhydramine HCl 50 mg 05/26/21 14:26 05/26/21 14:47 Diphenhydramine 50 Mg/Ml Sdv IVPUSH 05/26/21 14:27 50 mg ONETIME ONE Administration Dextrose/Lactated Ringer's 1,000 mls @ 999 mls/hr 05/26/21 14:30 05/26/21 14:58 Dextrose 5%-Lactated Ringers IV 999 mls/hr ASDIRECTED ADONAY Administration Ketorolac Tromethamine 15 mg 05/26/21 14:19 05/26/21 14:48 Ketorolac 15 Mg/Ml Sdv IVPUSH 05/26/21 14:20 Not Given ONETIME ONE Ketorolac Tromethamine 15 mg 05/26/21 14:38 05/26/21 14:48 Ketorolac 30 Mg/Ml Sdv IVPUSH 05/26/21 14:39 Not Given ONETIME ONE Ketorolac Tromethamine 15 mg 05/26/21 14:45 05/26/21 14:47 Ketorolac 30 Mg/Ml Sdv IVPUSH 05/26/21 14:46 15 mg ONETIME ONE Administration Ondansetron HCl 4 mg 05/26/21 15:11 05/26/21 15:15 Ondansetron 4 Mg/2 Ml Sdv IVPUSH 05/26/21 15:12 4 mg ONETIME ONE Administration Prochlorperazine Edisylate 5 mg 05/26/21 14:26 05/26/21 14:47 Prochlorperazine 10 Mg/2 Ml Sdv IVPUSH 05/26/21 14:27 5 mg ONETIME ONE Administration Departure - Departure Time of Disposition: 17:19 Disposition: Home, Self-Care 01 Condition: Fair Clinical Impression: COVID-19 - Discharge Information *PRESCRIPTION DRUG MONITORING PROGRAM REVIEWED*: No *COPY OF PRESCRIPTION DRUG MONITORING REPORT IN PATIENT JACQUE: No Instructions: COVID-19 Frequently Asked Questions, 10 Things You Can Do to Manage Your COVID-19 Symptoms at Home - [facility] (12/05/2020) Referrals: PCP,None [Primary Care Provider] - Forms: ED Department Discharge Additional Instructions: You should take acetaminophen 500-1000 mg every 6 hours as needed for fever and muscle aches. Please drink plenty of fluids and get plenty of rest over the next several days. We would recommend that you get a pulse oximeter from the pharmacy to keep an eye on your oxygen level. If your oxygen level drops below 91%, you should return to the ED for evaluation. You should return to the ER sooner if you start having any symptoms of shortness of breath or any other new or concerning symptoms. 1. Your COVID-19 screening is positive. That means you do have the coronavirus and you are considered contagious. Your vital signs and oxygen saturation are well enough that you were able to monitor your symptoms at home. Continue to monitor for trouble breathing, new confusion or inability to arouse, bluish lips or face or any of the other symptoms we discussed -if this occurs please return to the emergency room. 2. Please self quarantine over the next 5 days. Inform any persons that you have been in contact with since you started becoming symptomatic that you have tested positive; they should be made aware and take the appropriate steps as needed. 3. May alternate Tylenol and ibuprofen as needed for pain and fever management. 4. The [facility] department will be calling you and following up with you. The [place] COVID 19 Hotline phone number , They are open Tuesday - Tuesday 7am - 7pm. Follow up with your primary care provider for re-evaluation and re-testing after the 10 days [facility] [address] [place] [address] [id number] [address] [id number] The patient is informed of any results of their evaluation and diagnostic workup and all questions are answered. They are given discharge instructions and return precautions. The patient is stable for discharge. The patient states they understand and agree with the plan and that they will return if their symptoms get worse or if they have any new concerns. The following information is given to patients seen in the emergency department who are being discharged to home. This information is to outline your options for follow-up care. We provide all patients seen in our emergency department with a follow-up referral. The need for follow-up, as well as the timing and circumstances, are variable depending upon the specifics of your emergency department visit. If you don't have a primary care physician on staff, we will provide you with a referral. We always advise you to contact your personal physician following an emergency department visit to inform them of the circumstance of the visit and for follow-up with them and/or the need for any referrals to a consulting specialist. The emergency department will also refer you to a specialist when appropriate. This referral assures that you have the opportunity for follow-up care with a specialist. All of these measure are taken in an effort to provide you with optimal care, which includes your follow-up. Under all circumstances we always encourage you to contact your private physician who remains a resource for coordinating your care. When calling for follow-up care, please make the office aware that this follow-up is from your recent emergency room visit. If for any reason you are refused follow-up, please contact the [facility] Emergency Department at and asked to speak to the emergency department charge nurse.
[2021-05-26 17:35] VITALS: BP 157/67; PULSE 67
== END 2021-05-26 17:37 | disposition home or self-care (01) ==
LOC: MW.ED 13:43
DX: U07.1 COVID-19 (principal); E78.00 Pure hypercholesterolemia, unspecified; E66.9 Obesity, unspecified; Z68.36 Body mass index [BMI] 36.0-36.9, adult; Z88.5 Allergy status to narcotic agent; Z88.2 Allergy status to sulfonamides; Z88.8 Allergy status to other drugs, medicaments and biological substances; Z79.899 Other long term (current) drug therapy
CPT/HCPCS: 96374; 96375; 99284; J0780; J1200; J1885; J2405; J7121

== ENCOUNTER 2021-06-05 10:54 | Emergency (ER) | payer OTHER ==
[2021-06-05] MEDS ORDERED: Ketorolac 30 MG/ML SDV IVPUSH ONE (11:23)
[2021-06-05] MEDS ORDERED: Sodium Chloride 0.9% 1,000 ML IV ONE (11:23)
[2021-06-05] MEDS ORDERED: Tetracaine HCl/PF 0.5% 4 ML Bottle EYELF ONE (11:39)
[2021-06-05 13:46] LABS: BLOOD UREA NITROGEN,BUN 10 mg/dL (7.0-18.0); CARBON DIOXIDE,CO2 28.1 mmol/L (21.0-32.0); CHLORIDE,CL 103 mmol/L (98-107); GLUCOSE RANDOM 86 mg/dL (74-106); POTASSIUM,K 3.5 mmol/L (3.5-5.1); SODIUM,NA 140 mmol/L (136-145)
[2021-06-05 14:09] VITALS: BP 153/110; PULSE 75
== END 2021-06-05 14:12 | disposition home or self-care (01) ==
LOC: MW.ED 10:54
DX: H57.13 Ocular pain, bilateral (principal); H57.89 Other specified disorders of eye and adnexa; E66.9 Obesity, unspecified; Z68.37 Body mass index [BMI] 37.0-37.9, adult; Z88.5 Allergy status to narcotic agent; Z88.2 Allergy status to sulfonamides; Z88.8 Allergy status to other drugs, medicaments and biological substances; Z79.899 Other long term (current) drug therapy
CPT/HCPCS: 70450; 70450-26; 80053; 85025; 86140; 93005; 96374; 99284-25; J1885; J7030

== ENCOUNTER 2021-12-24 09:04 | Day surgery (SDC) | payer OTHER ==
[~2021-12-24 09:04] MED LIST: Lactated Ringers 1,000 ML IV SCH; Lidocaine 2% 5 ML SDV ONE; Propofol 200 MG/20 ML SDV ONE; Sodium Chloride 0.9% 10 ML Syringe FLUSH PRN; Sodium Chloride 0.9% 2.5 ML Syringe FLUSH PRN; Sodium Chloride 0.9% 20 ML SDV IV PRN; fentaNYL 100 MCG/2 ML SDV ONE
[2021-12-24] MEDS ORDERED: Famotidine 20 MG/2 ML SDV ONE (10:20)
[2021-12-24] MEDS ORDERED: Propofol 200 MG/20 ML SDV ONE ×2 (10:32→11:11)
[2021-12-24 11:34] VITALS: PULSE 73
[2021-12-24 12:01] VITALS: BP 136/80
== END 2021-12-24 12:00 | disposition home or self-care (01) ==
LOC: MW.SDS 09:04
PROVIDERS: ATTEND Surgery
DX: Z12.11 Encounter for screening for malignant neoplasm of colon (principal); D12.3 Benign neoplasm of transverse colon; K62.1 Rectal polyp; K31.89 Other diseases of stomach and duodenum; K29.70 Gastritis, unspecified, without bleeding; F32.A Depression, unspecified; K21.9 Gastro-esophageal reflux disease without esophagitis; E78.5 Hyperlipidemia, unspecified; I10 Essential (primary) hypertension; M06.9 Rheumatoid arthritis, unspecified; G43.909 Migraine, unspecified, not intractable, without status migrainosus; E66.9 Obesity, unspecified; E55.9 Vitamin D deficiency, unspecified; Z88.5 Allergy status to narcotic agent; Z88.2 Allergy status to sulfonamides; Z88.8 Allergy status to other drugs, medicaments and biological substances; Z79.899 Other long term (current) drug therapy; Z98.890 Other specified postprocedural states; Z68.36 Body mass index [BMI] 36.0-36.9, adult
CPT/HCPCS: 43239; 45380; J0131; J2704; J3010; J3490; J7120; 00813